=== PATIENT | female | born 1950 | race Caucasian/White ===

== ENCOUNTER 2024-09-10 06:29 | Day surgery (SDC) | payer MEDICARE, BC, SELFPAY ==
[2024-09-10] VITALS (7 sets, daily range): BP systolic 109–145; BP diastolic 52–74; BMI 26.5
[2024-09-10] MEDS: TYLENOL 1000 MG PO (12:28)
[2024-09-10] MEDS: NORMOSOL-R/PLASMALYTE-A 1000 IV (12:29)
[2024-09-10] MEDS: SUBLIMAZE 50 MCG IV ×2 (16:25→16:38)
== END 2024-09-10 18:03 | disposition home or self-care (01) ==
LOC: SDS 06:29
PROVIDERS: ATTENDING PHYSICIAN Surgery
DX: K43.2 Incisional hernia without obstruction or gangrene (principal)
CPT/HCPCS: 49593; C1781

== ENCOUNTER → 2025-07-11 14:24 | Outpatient (REF) | payer OTHER, SELFPAY | LOC: RAD 14:24 | PROVIDERS: ATTENDING PHYSICIAN Nurse Practitioner Adult Health | DX: Z78.0 Asymptomatic menopausal state (principal) | CPT/HCPCS: 77080 ==